=== PATIENT | male | born 1970 | race Caucasian/White ===

== ENCOUNTER 2018-06-06 11:20 | Emergency (ER) | payer OTHER ==
[2018-06-06] MEDS ORDERED: NS 500 ML IV ONE (11:32)
[2018-06-06] MEDS ORDERED: ASPIRIN 81 MG CHEWABLE TAB PO ONE (11:32)
[2018-06-06 11:41] LABS: PLATELET COUNT 243 10^3/uL (150-400)
--- NOTE | 2018-06-06 13:23 | EDPHY ---
H & P Time Seen by Provider: 06/06/18 11:32 HPI/ROS: HPI Lightheaded. Anxious. 47-year-old male by private vehicle with his . This patient states that he was at work. He was sitting at his desk. He started feeling lightheaded and faint. He did not lose consciousness. He reports that with this lightheadedness he started feeling anxious and felt his heart beating fast. No associated shortness of breath. No chest pain. He called his about this. She came to his work. On the way to the emergency department he was still symptomatic but when he got here he was feeling better. On my evaluation he denies any symptoms currently. ROS: Constitutional: No fever, no chills. As above. Eyes: No discharge. No changes in vision. ENT: No sore throat. No nasal congestion or rhinorrhea. Respiratory: No cough. No shortness of breath. Cardiac: No chest pain, as above. Gastrointestinal: No abdominal pain, no vomiting, no diarrhea. Genitourinary: No hematuria. No dysuria or increased frequency with urination. Musculoskeletal: No back pain. No neck pain. No myalgias or arthralgias. Skin: No rashes. Neurological: No headache. No focal weakness or altered sensation. Past medical history: He denies any past medical history. No prescription medications. He states that he did take some cough and cold medicine this morning and thought he may have had a reaction to this. Social history: Nonsmoker. Social alcohol. Here with his . Physical Exam: General Appearance: Alert, no distress. This patient is responding to questions appropriately and in full sentences. This patient appears well- hydrated and well-nourished. Eyes: Pupils equal and round no pallor or injection. No lid edema, erythema or injection. Respiratory: There are no retractions, lungs are clear to auscultation with good air movement bilaterally. Cardiovascular: Regular rate and rhythm. No murmur. Gastrointestinal: Abdomen is soft and nontender, no masses, bowel sounds normal. No focal tenderness at McBurney's point. No Camarena sign. Neurological: Motor sensory function is grossly intact. Cranial nerves are normal. Gait is normal. Skin: Warm and dry, no rashes. Musculoskeletal: Neck is supple and nontender. Extremities are symmetrical. All joints range without pain or impingement. Psychiatric: No agitation. No depression. Database: EKG: EKG time is 11:30 a.m.; EKG shows a narrow complex normal sinus rhythm with a ventricular rate of 51. The NH, QRS, QT intervals are within normal limits. There are no ST-T wave changes indicative of ischemic or injury pattern. No evidence of right heart strain. No evidence of WPW, Brugada syndrome, hypertrophic cardiomyopathy. Interpreted by me. Imaging: Chest x-ray PA and lateral; the cardiac mediastinal silhouette is unremarkable. No evidence of infiltrate or pneumothorax. No acute cardiopulmonary disease process noted. Interpreted by me. Procedures: Emergency department course: Triage vital signs reviewed. He is moderately hypertensive. Vital signs are otherwise normal. IV was placed. He was given 500 cc of IV normal saline. EKG obtained and reviewed by myself. 1:20 p.m., the patient was re-evaluated. He is resting comfortably at this time. He remains asymptomatic. Blood pressure currently 155/90. heel stiffener shows a narrow complex sinus rhythm with ventricular rate of 63. Pulse oximetry 95% on room air. Results of his emergency department workup were discussed with him and his . He feels comfortable going home at this time and I feel he is safe for discharge. I will have him follow up with her cardiology group for re-evaluation of his lightheadedness today as well as his elevated blood pressure. He is in agreement with this plan. Return to emergency department precautions have been reviewed with him. All of his questions were answered. He was discharged from the emergency department in good condition with his . Differential Diagnosis: The differential diagnosis on this patient includes but is not limited to noncardiac near syncope, anxiety reaction. Arrhythmia, pulmonary embolism, acute coronary syndrome, CVA unlikely. This represents a partial list of diagnoses considered. These considerations are based on history, physical exam , past history, reassessment and diagnostic testing. Smoking Status: Never smoked Constitutional: Initial Vital Signs Temperature (C) 36.5 C 06/06/18 11:23 Heart Rate 78 06/06/18 11:23 Respiratory Rate 16 06/06/18 11:23 Blood Pressure 174/90 H 06/06/18 11:23 O2 Sat (%) 97 06/06/18 11:23 O2 Delivery Mode Room Air Allergies/Adverse Reactions: No Known Allergies Allergy (Unverified 06/06/18 11:22) Home Medications: Medication Instructions Recorded NK [No Known Home Meds] 06/06/18 Medical Decision Making - Data Points Laboratory Results: Laboratory Results 06/06/18 11:32 06/06/18 11:32 Medications Given: Discontinued Medications Aspirin (Aspirin) 324 mg PO EDNOW ONE Stop: 06/06/18 11:33 Last Admin: 06/06/18 11:47 Dose: 324 mg Sodium Chloride (Ns) 500 mls @ 1,000 mls/hr IV EDNOW ONE PRN Reason: Protocol Stop: 06/06/18 12:01 Last Admin: 06/06/18 11:47 Dose: 500 mls Point of Care Test Results: Chemistry 06/06/18 11:36 POC Troponin I 0.00 ng/mL ng/mL (0.00-0.08) Departure - Departure Disposition: Home, Routine, Self-Care Clinical Impression: Near syncope Condition: Good Instructions: Near Syncope (ED) Additional Instructions: Read and follow provided instructions. Follow-up with your primary care physician or Cardiology as discussed within the next 2-3 days for re-evaluation. You will have to call for appointment today. Explain this is for an emergency department follow-up. Your blood pressure should be evaluated at this time as well as your symptoms today discussed. Keep yourself well hydrated. Do not engage in any strenuous physical activity until you have been cleared by cardiology. Return to the emergency department for worsening symptoms, fainting, chest pain , shortness of breath, headache or other serious concerns. Referrals: Milan Shirley DO [Primary Care Provider] - As per Instructions [facility] [Provider Group] - As per Instructions
[2018-06-06 13:40] VITALS: BP 123/94
--- NOTE | 2018-06-06 15:04 | CPEKG ---
Test Reason : OPEN Blood Pressure : / mmHG Vent. Rate : 051 BPM Atrial Rate : 051 BPM P-R Int : 178 ms QRS Dur : 105 ms QT Int : 442 ms P-R-T Axes : 054 049 032 degrees QTc Int : 408 ms Sinus rhythm Confirmed by Cadence Wyman ([id number]) on 06/06/2018 3:03:00 PM Referred By: Confirmed By:Cadence Wyman
== END 2018-06-06 13:39 | disposition home or self-care (01) ==
DX: R55 Syncope and collapse (principal); F41.9 Anxiety disorder, unspecified; I10 Essential (primary) hypertension
CPT/HCPCS: 84484-PO